=== PATIENT | female | born 1995 | race Caucasian/White ===

== ENCOUNTER 2018-06-09 20:20 | Emergency (ER) | payer OTHER ==
[~2018-06-09 20:20] MED LIST: BIRTH CONTROL PO; HYDR-3083 PO; IBUP800T37 PO; LOR5/325 PO; MEDR150V11 IM
[2018-06-09 20:24] VITALS: BP 113/76
--- NOTE | 2018-06-09 20:35 | ER Report ---
History and Physical Time Seen By MD: 20:35 Hx. of Stated Complaint: patient feel on ice at work, injury to left wrist. happened around 1830. . HPI/ROS CHIEF COMPLAINT: Fall with wrist injury HISTORY OF PRESENT ILLNESS: This is a 22-year-old female. She is at work and slipped on the ice. Reached out to break her fall with her left wrist, now with pain in the wrist that extends toward the elbow. She has normal sensation and can move the fingers. Allergies: Coded Allergies: No Known Drug Allergies (Unverified , 02/13/13) Home Meds Active Scripts Hydrocodone Bit/Acetaminophen (HYDROCODON-ACETAMINOPHEN 5-325) 1 Each Tablet, 1 EACH PO Q4H PRN for PAIN, #6 TAB 0 Refills Prov:AYDEN MESA MD 06/09/18 Reported Medications [ Control] No Conflict Check, 1 TAB PO QDAY 03/04/15 Discontinued Scripts Hydrocodone Bit/Acetaminophen (HYDROCODON-ACETAMINOPHEN 5-325) 1 Each Tablet, 1 EACH PO Q4-6H for PAIN, #15 TAKE ONE TABLET BY MOUTH EVERY 4-6 HOURS NEEDED FOR PAIN Prov:ZEYAD KUMAR MD 03/04/15 Ibuprofen (IBUPROFEN) 800 Mg Tablet, 1 TAB PO Q8H, #30 TAB Prov:ZEYAD KUMAR MD 03/04/15 Reviewed Nurses Notes: Yes Hx Smoking: Yes (occ) Smoking Status: Current: Every Day Smoker Exposure to Second Hand Smoke?: No Hx Substance Use Disorder: No Hx Alcohol Use: No Constitutional Vital Sign - Last 24 Hours 06/09/18 06/09/18 06/09/18 06/09/18 20:24 20:35 20:50 21:05 Temp 98.8 Pulse 81 90 84 85 Resp 16 B/P (MAP) 113/76 Pulse Ox 95 94 95 94 O2 Delivery Room Air 06/09/18 06/09/18 06/09/18 06/09/18 21:20 21:35 21:50 22:05 Pulse 85 81 84 83 Pulse Ox 94 94 94 92 Physical Exam General appearance: alert, no distress. Left wrist: There is no asymmetry. There is mild swelling throughout the wrist. There is no obvious deformity. There is tenderness. Distal radius and over the ulnar styloid. No tenderness in the anatomic snuff box. Some tenderness throughout the forearm but no tenderness in the elbow itself. Neurologic exam: The patient has normal sensation distal to the injury. Active range of motion is intact, but with pain. Vascular exam: Normal pulses and capillary refill. Skin: No skin breakdown DIFFERENTIAL DIAGNOSIS: After history and physical exam, differential diagnosis was considered for wrist injury including sprain, fracture, dislocation and soft tissue injury. Medical Decision Making Data Points Laboratory Hematology Test 06/09/18 22:55 Urine Opiates Screen Negative Urine Barbiturates Screen Negative Ur Tricyclic Antidepressants Screen Negative Urine Phencyclidine Screen Negative Urine Amphetamines Screen Negative Urine Benzodiazepines Screen Negative Urine Cocaine Screen Negative Urine Cannabinoids Screen Negative Chemistry Test 06/09/18 22:55 Urine Opiates Screen Negative Urine Barbiturates Screen Negative Ur Tricyclic Antidepressants Screen Negative Urine Phencyclidine Screen Negative Urine Amphetamines Screen Negative Urine Benzodiazepines Screen Negative Urine Cocaine Screen Negative Urine Cannabinoids Screen Negative Toxicology Test 06/09/18 22:55 Urine Opiates Screen Negative Urine Barbiturates Screen Negative Ur Tricyclic Antidepressants Screen Negative Urine Phencyclidine Screen Negative Urine Amphetamines Screen Negative Urine Benzodiazepines Screen Negative Urine Cocaine Screen Negative Urine Cannabinoids Screen Negative EKG/Imaging Imaging INDICATION: foosh, pain in wrist and forearm towards elbow. DATE: 06/09/2018 9:06 PM. TECHNIQUE: XR WRIST 3 OR MORE VIEWS LT, FOREARM LEFT COMPARISON: None FINDINGS: Left wrist: A fracture of the distal radius is transverse and mildly impacted. On the lateral view, the radial articular surface is in near neutral alignment. There is no definite fracture extension to the articular surface. An ulnar styloid fracture is minimally displaced. IMPRESSION: Distal radial fracture and ulnar styloid fracture as noted. Report Dictated By: Darlyn Valle MD at 06/09/2018 9:06 PM INDICATION: foosh, pain in wrist and forearm towards elbow. DATE: 06/09/2018 9:06 PM. TECHNIQUE: XR WRIST 3 OR MORE VIEWS LT, FOREARM LEFT COMPARISON: None FINDINGS: Left wrist: A fracture of the distal radius is transverse and mildly impacted. On the lateral view, the radial articular surface is in near neutral alignment. There is no definite fracture extension to the articular surface. An ulnar styloid fracture is minimally displaced. IMPRESSION: Distal radial fracture and ulnar styloid fracture as noted. Report Dictated By: Darlyn Valle MD at 06/09/2018 9:06 PM ED Course/Re-evaluation ED Course Work comp injury, x-ray showed distal radius Colles' fracture without any sign of articular involvement. Also mildly displaced ulnar styloid fracture. Urine drug screen was obtained because of work comp and this was negative. Sugar tong splint applied, discussed the case with Dr. Hardy Re-evaluation Procedure: Left forearm sugar tong half cast placement. A half-cast/splint as noted above was applied. After application of the half- cast, I returned and re-examined the patient. The half-cast was adequately immobilizing the joint and distally the patient's circulation and sensation was intact. This was applied by the device repair technician but reevaluated by myself. Decision to Disposition Date: Jun 09, 2018 Decision to Disposition Time: 22:39 Depart Departure Latest Vital Signs Vital Signs Date Time Temp Pulse Resp B/P (MAP) Pulse Ox O2 Delivery O2 Flow Rate FiO2 06/09/18 22:05 83 92 06/09/18 20:24 98.8 16 113/76 Room Air Impression: Primary Impression: Colles' fracture of left radius, initial encounter for closed fracture Additional Impression: Fracture of ulnar styloid Condition: Improved Disposition: HOME OR SELF-CARE Referrals: [place] WINTERS MD (PCP) New Scripts Hydrocodone Bit/Acetaminophen (HYDROCODON-ACETAMINOPHEN 5-325) 1 Each Tablet 1 EACH PO Q4H PRN for PAIN, #6 TAB 0 Refills Prov: AYDEN MESA MD 06/09/18 Patient Instructions: Wrist Fracture in Adults (ED) Additional Instructions: Ibuprofen as needed for pain. Lortab 5/325, one every 4 hours as needed for pain. Apply ice 20 minutes every 1-2 hours while awake. Wear the splint until you see the orthopedic surgeon. [facility] in the morning to schedule an appointment. Dr Mistry or Dr Patel. Keep it elevated at rest. Sling as needed. Problem Qualifiers Additional Impression: Fracture of ulnar styloid Encounter type: initial encounter Fracture type: closed Fracture alig nment: displaced Laterality: left Qualified Codes: S52.612A - Displaced fracture of left ulna styloid process, initial encounter for closed fracture AYDEN MESA MD Jun 09, 2018 20:35
--- NOTE | 2018-06-09 21:17 | RADIOLOGY IMAGING REPORT ---
FACILITY: [facility] PATIENT NAME: Ranjit Tam : 1995 MR: [id number] V: [id number] EXAM DATE: ORDERING PHYSICIAN: AYDEN MESA TECHNOLOGIST: Location: [facility] [place] Patient: Ranjit Tam : 1995 Visit/Account:[id number] Date of Sevice: 06/09/2018 INDICATION: foosh, pain in wrist and forearm towards elbow. DATE: 06/09/2018 9:06 PM. TECHNIQUE: XR WRIST 3 OR MORE VIEWS LT, FOREARM LEFT COMPARISON: None FINDINGS: Left wrist: A fracture of the distal radius is transverse and mildly impacted. On the lateral view, t he radial articular surface is in near neutral alignment. There is no definite fracture extension to the articular surface. An ulnar styloid fracture is minimally displaced. IMPRESSION: Distal radial fracture and ulnar styloid fracture as noted. Report Dictated By: Darlyn Valle MD at 06/09/2018 9:06 PM Report E-Signed By: Darlyn Valle MD at 06/09/2018 9:13 PM WSN:[id number]
--- NOTE | 2018-06-09 21:18 | RADIOLOGY IMAGING REPORT ---
FACILITY: [facility] PATIENT NAME: Ranjit Tam : 1995 MR: [id number] V: [id number] EXAM DATE: ORDERING PHYSICIAN: AYDEN MESA TECHNOLOGIST: Location: [facility] Patient: Ranjit Tam : 1995 Visit/Account:[id number] Date of Sevice: 06/09/2018 INDICATION: foosh, pain in wrist and forearm towards elbow. DATE: 06/09/2018 9:06 PM. TECHNIQUE: XR WRIST 3 OR MORE VIEWS LT, FOREARM LEFT COMPARISON: None FINDINGS: Left wrist: A fracture of the distal radius is transverse and mildly impacted. On the lateral view, t he radial articular surface is in near neutral alignment. There is no definite fracture extension to the articular surface. An ulnar styloid fracture is minimally displaced. IMPRESSION: Distal radial fracture and ulnar styloid fracture as noted. Report Dictated By: Darlyn Valle MD at 06/09/2018 9:06 PM Report E-Signed By: Darlyn Valle MD at 06/09/2018 9:13 PM WSN:[id number]
[2018-06-09] MEDS ORDERED: LOR5/325 PO (22:42)
[2018-06-09] MEDS ORDERED: ACET/HYDROC 5/325MG TH ER ONLY 2 TAB/BOTTLE PO ONE (22:45)
== END 2018-06-09 22:55 | disposition home or self-care (01) ==
LOC: ER 20:59
DX: S52.612A Displaced fracture of left ulna styloid process, initial encounter for closed fracture (principal)
CPT/HCPCS: 29125; 73090; 73110; 80305; 99284; A4565